=== PATIENT | female | born 1945 | race Caucasian/White ===

== ENCOUNTER 2017-12-09 10:13 | Outpatient (CLI) | payer MEDICARE | END 2017-12-09 10:14 | disposition home or self-care (01) | LOC: BICMAMMO 10:13 | PROVIDERS: ATTEND Nurse Practitioner | DX: Z12.31 Encounter for screening mammogram for malignant neoplasm of breast (principal) | CPT/HCPCS: 77063; 77067 ==

== ENCOUNTER 2018-12-10 12:40 | Outpatient (CLI) | payer MEDICARE ==
--- NOTE | 2018-12-10 13:42 | MMO ---
Bilateral MAMMO Bilat Screen DDI+MICHELLE. CLINICAL HISTORY: Patient is 73 years old and is seen for screening. The patient has no family history of breast cancer. The patient has no personal history of cancer. VIEWS: The views performed were: bilateral craniocaudal with tomosynthesis and bilateral mediolateral oblique with tomosynthesis. FILMS COMPARED: The present examination has been compared to prior imaging studies performed at [facility] on 11/25/2014, 12/06/2015, 12/06/2016 and 12/09/2017. This study has been interpreted with the assistance of computer-aided detection. MAMMOGRAM FINDINGS: There are scattered fibroglandular densities. There is a focal asymmetry seen in the outer region of the left breast. In the right breast, there are no suspicious masses, calcifications or areas of architectural distortion. IMPRESSION: FOCAL ASYMMETRY IN THE LEFT BREAST REQUIRES ADDITIONAL EVALUATION. RECOMMEND DIAGNOSTIC MAMMOGRAM. ULTRASOUND MAY ALSO PROVE USEFUL AT RECALL. THE RESULTS OF THIS EXAM WERE SENT TO THE PATIENT. ACR BI-RADS Category 0 - Incomplete: Need additional imaging evaluation. [facility] will notify the patient of the need for additional imaging services. MAMMOGRAPHY NOTE: 1. A negative mammogram report should not delay a biopsy if a dominant of clinically suspicious mass is present. 2. Approximately 10% to 15% of breast cancers are not detected by mammography. 3. Adenosis and dense breasts may obscure an underlying neoplasm. Reported by: SHERRIE PETTY MD Electonically Signed: [id number]
== END 2018-12-10 12:41 | disposition home or self-care (01) ==
LOC: BICMAMMO 12:40
PROVIDERS: ATTEND Clinical Nurse Specialist Medical-Surgical
DX: Z12.31 Encounter for screening mammogram for malignant neoplasm of breast (principal); N64.89 Other specified disorders of breast
CPT/HCPCS: 77063; 77067

== ENCOUNTER 2018-12-18 12:27 | Outpatient (CLI) | payer MEDICARE ==
--- NOTE | 2018-12-18 14:02 | MMO ---
Left Breast MAMMO Unilat Diag DDI LT+MICHELLE. CLINICAL HISTORY: Patient is 73 years old and is seen for additional evaluation requested from prior study. The patient has no family history of breast cancer. The patient has no personal history of cancer. VIEWS: The views performed were: left craniocaudal spot compression with tomosynthesis; left mediolateral oblique spot compression with tomosynthesis; and left mediolateral with tomosynthesis. FILMS COMPARED: The present examination has been compared to prior imaging studies performed at [facility] on 12/06/2016, 12/09/2017, 12/10/2018 and 12/18/2018. This study has been interpreted with the assistance of computer-aided detection. MAMMOGRAM FINDINGS: There are scattered fibroglandular densities. There is an irregular mass measuring 6 millimeters seen in the middle region of the left breast at 3 o'clock. IMPRESSION: MASS IN THE LEFT BREAST IS SUSPICIOUS. BIOPSY IS RECOMMENDED. THE RESULTS OF THIS EXAM WERE SENT TO THE PATIENT. ACR BI-RADS Category 4 - Suspicious abnormality - biopsy should be considered MAMMOGRAPHY NOTE: 1. A negative mammogram report should not delay a biopsy if a dominant of clinically suspicious mass is present. 2. Approximately 10% to 15% of breast cancers are not detected by mammography. 3. Adenosis and dense breasts may obscure an underlying neoplasm. Reported by: Narciso DURAN Electonically Signed: [id number]
--- NOTE | 2018-12-18 14:11 | ULT ---
LEFT BREAST ULTRASOUND: HISTORY: Breast mass. COMPARISON: Multiple prior exams, most recent mammogram from same day. FINDINGS: Left breast, 3 o'clock, 4 cm from the nipple, has a hypoechoic mass with posterior acoustic shadowing , angular margin, which is taller than wide with a peripheral echogenic halo, measuring up to 7 mm. IMPRESSION: BI-RADS category 4 - suspicious for malignancy. Ultrasound guided biopsy recommended. CODE CR POS: OFF
== END 2018-12-18 12:28 | disposition home or self-care (01) ==
LOC: BICMAMMO 12:27
PROVIDERS: ATTEND Clinical Nurse Specialist Medical-Surgical
DX: N64.89 Other specified disorders of breast (principal)
CPT/HCPCS: 76642; 77065; G0279

== ENCOUNTER → 2018-12-29 | Day surgery (SDC) | payer MEDICARE ==
--- NOTE | 2018-12-29 13:42 | MMO ---
Left Breast MAMMO Unilat Diag DDI LT. CLINICAL HISTORY: Patient is 73 years old and is seen for diagnostic exam. VIEWS: The views performed were: . FILMS COMPARED: The present examination has been compared to prior imaging studies performed at [facility] on 12/09/2017, 12/10/2018 and 12/18/2018. This study has been interpreted with the assistance of computer-aided detection. IMPRESSION: FINDING IN THE LEFT BREAST IS CONFIRMED UTILIZING POST PROCEDURE MAMMOGRAM. THE RESULTS OF THIS EXAM WERE SENT TO THE PATIENT. MAMMOGRAPHY NOTE: 1. A negative mammogram report should not delay a biopsy if a dominant of clinically suspicious mass is present. 2. Approximately 10% to 15% of breast cancers are not detected by mammography. 3. Adenosis and dense breasts may obscure an underlying neoplasm. Reported by: Narciso DURAN Electonically Signed: [id number]
--- NOTE | 2018-12-29 17:17 | ULT ---
ULTRASOUND GUIDED LEFT BREAST BIOPSY: History: Mass. Comparison: Ultrasound, 12-18-18 as well as mammogram, 12-18-18. FINDINGS: The patient was brought to the ultrasound suite where all questions were answered. Informed consent w as obtained. Time was performed. The patient's left breast was prepped and draped in normal sterile fashion. 5 ml of Lidocaine was ins tilled into the superficial and deep soft tissues. After adequate anesthesia, using a 14 gauge needle a total of four cores were obtained. The patient tolerated the procedure well without complication. Clip was placed in good position on post clip mammogram. IMPRESSION: Technically successful ultrasound guided left breast biopsy. POS: OFF
== END ==
LOC: BICULT 12:26
PROVIDERS: ATTEND Clinical Nurse Specialist Medical-Surgical
PROC: 0H9U3ZX Drainage of Left Breast, Percutaneous Approach, Diagnostic (ICD-10-PCS; principal; 2018-12-29)
DX: C50.812 Malignant neoplasm of overlapping sites of left female breast (principal); Z88.0 Allergy status to penicillin; Z88.1 Allergy status to other antibiotic agents
CPT/HCPCS: 19083; 88305; 88341; 88342

== ENCOUNTER 2019-02-23 06:36 | Outpatient (CLI) | payer MEDICARE ==
[2019-02-23 13:01] LABS: #Basophils 0.1 thou/uL (0.0-0.2); #Eosinphils 0.1 thou/uL (0.0-0.7); #Monocytes 0.4 thou/uL (0.11-0.59); #Neutrophils 3.2 thou/uL (1.40-6.50); %Basophils 1.1 % (0.0-1.0); %Eosinophils 1.6 % (0.0-10.0); %Lymphocytes 34.3 % (21.0-51.0); %Monocytes 6.7 % (0.0-10.0); %Neutrophils 56.4 % (42.0-75.0); Hemoglobin 15.3 g/dL (12.0-16.0); Mean Corpuscular HGB CONC 32.3 g/dL (32.0-36.0); Mean Corpuscular Hemoglobin 30.2 pg (27.0-31.0); Mean Corpuscular Volume 93.6 fL (78.0-98.0); Mean Platelet Volume 9.6 fL (7.4-10.4); Platelet Count 203 thou/uL (130-400); RBC Distribution Width 11.9 % (11.5-14.5); Red Blood Cell (RBC) Count 5.05 mill/uL (4.20-5.40); White Blood Cell (WBC) Count 5.7 thou/uL (4.8-10.8)
[2019-02-23 13:33] LABS: ALT (SGPT) 24 U/L (8-55); AST (SGOT) 22 U/L (5-34); Albumin 4.3 g/dL (3.4-4.8); Alkaline Phosphatase 65 U/L (40-110); Anion Gap 13 mmol/L (10-20); BUN (Urea Nitrogen) 15 mg/dL (9.8-20.1); Bilirubin, Total 0.4 mg/dL (0.2-1.2); Calc. Creatinine Clearance 0 mL/min (70-130); Carbon Dioxide 26 mmol/L (23-31); Chloride 102 mmol/L (98-107); Estimated GFR-MDRD 79; Globulin 2.6 g/dL (2.4-3.5); Glucose 106 mg/dL (83-110); Potassium 3.9 mmol/L (3.5-5.1); Protein, Total 6.9 g/dL (6.0-8.3); Sodium 137 mmol/L (136-145)
--- NOTE | 2019-02-25 13:38 | EKG ---
Test Reason : Blood Pressure : / mmHG Vent. Rate : 061 BPM Atrial Rate : 061 BPM P-R Int : 200 ms QRS Dur : 072 ms QT Int : 350 ms P-R-T Axes : 055 072 062 degrees QTc Int : 352 ms Normal sinus rhythm Septal infarct , age undetermined Abnormal ECG No previous ECGs available Confirmed by JORGE ALBERTO DAWSON (2) on 02/25/2019 1:37:29 PM Referred By: ISMA Confirmed By:JORGE ALBERTO DAWSON
== END 2019-02-23 06:37 | disposition home or self-care (01) ==
LOC: LABBT 06:36
PROVIDERS: ATTEND Surgery
DX: Z01.818 Encounter for other preprocedural examination (principal); C50.912 Malignant neoplasm of unspecified site of left female breast
CPT/HCPCS: 80053; 85025; 93005; 93010

== ENCOUNTER 2019-03-06 06:16 | Day surgery (SDC) | payer MEDICARE ==
[2019-02-23 11:10] VITALS: BMI 29.2
--- NOTE | 2019-03-06 09:13 | HP ---
CHIEF COMPLAINT: Breast cancer. HISTORY OF PRESENT ILLNESS: The patient is a 73-year-old female, who on mammogram in November was found to have a mass in a left breast. Core biopsy was positive for infiltrating ductal carcinoma. There are no palpable masses. PAST MEDICAL HISTORY: Low back pain, anxiety, seasonal allergies, hyperlipidemia, epilepsy, seizures, headaches, and hypertension. PAST SURGICAL HISTORY: Hysterectomy at age 30. MEDICATIONS: 1. Ibuprofen. 2. Lisinopril. 3. Fish oil. 4. Aspirin. 5. Lipitor. 6. Aleve. 7. Diphenhydramine. FAMILY HISTORY: Both parents were . SOCIAL HISTORY: She is . No tobacco. No alcohol. PHYSICAL EXAMINATION: VITAL SIGNS: Height 62, weight 158, and body mass index 28.9. GENERAL: Well-developed, well-nourished female, in no apparent distress. HEENT: Unremarkable. LUNGS: Clear. HEART: Regular rate and rhythm. BREASTS: There is some bruising in the upper outer left breast. No palpable mass or adenopathy. ABDOMEN: Soft, nontender. Good bowel sounds. No masses or hernias. EXTREMITIES: Good pulses. No pedal edema. ASSESSMENT: Left breast cancer. PLAN: Left needle localization lumpectomy with sentinel lymph node biopsy. CONSENT: I have discussed planned procedure as well as risk of bleeding, infection, injury to nerves, lymph edema. She understands and gives informed consent. Job ID: [id number]
[2019-03-06] MEDS ORDERED: PROPOFOL 200 MG/20 ML VIAL ONE (09:54)
[2019-03-06] MEDS ORDERED: Ketorolac Tromethamine 30 MG/ML VIAL ONE (09:54)
[2019-03-06] MEDS ORDERED: Ondansetron PF 4 MG/2 ML Vial ONE (09:54)
[2019-03-06] MEDS ORDERED: Dexamethasone 20 MG/5 ML VIAL ONE (09:54)
[2019-03-06] MEDS ORDERED: Lidocaine 1% PF 5 ML VIAL ONE (09:54)
[2019-03-06] MEDS ORDERED: Lidocaine 1% w/Epinephrine 1:100K 20 ML VIAL ONE (10:40)
[2019-03-06] MEDS ORDERED: Bupivacaine 0.25% HCL 30 ML VIAL ONE (10:40)
[2019-03-06] MEDS ORDERED: Fentanyl 100 MCG/2 ML VIAL ONE ×3 (10:47→15:31)
--- NOTE | 2019-03-06 11:51 | MMO ---
Needle localization left breast cancer mammographic guided HISTORY: After explaining the procedure and answering all questions, the spiculated mass and localiza tion clip within the lateral aspect of the breast was visualized. Sterile technique, buffered local anesthesia, mammographic guidance, and a lateral approach were used to carefully advance a 7.5 cm Ramirez er needle through the posterior margin of the mass, immediately deep to the localization clip. Final images show the needle tip to be 1.7 cm medial to the mass. Images were marked. Patient tolerat ed the procedure well and was transferred to nuclear medicine Department in good condition. IMPRESSION: Technically successful needle localization left breast cancer.
[2019-03-06] MEDS ORDERED: Levofloxacin 500 mg/D5W 100 ml Premix Bag ONE (12:41)
[2019-03-06] MEDS ORDERED: Isosulfan Blue 50 MG/5 ML VIAL ONE (13:11)
--- NOTE | 2019-03-06 13:25 | NM ---
Radionucleotide Lymphoscintigraphy left breast HISTORY: Left breast cancer. FINDINGS: After explaining the procedure and answering all questions, the anterior aspect of the left breast was cleansed. Clean technique was used to carefully inject a total volume of 1 cc containing 378 uCi technetium 99m filtered sulfur colloid in 4 equal aliquots into the dermis at the 12:00, 3:00, 6:00, and 9:00 periareolar positions of the left breast. Injection sites were massaged by the patient to diffuse the liquid. Immediate imaging performed. Imag es at immediate and 1 hour times show a small focus just lateral to the skin margin of the left axilla. This is consistent with and extrinsic artifact that was removed for the additional images. Imaging carried out to 3 hours shows no significant uptake over the axilla or mediastinum. Patient was sent to day surgery in good condition. IMPRESSION: Lymphoscintigraphy of the left breast failed to confidently demonstrate a sentinel lymph node.
[2019-03-06] MEDS ORDERED: Promethazine HCl 25 MG/ML VIAL SLOW IVP PRN (14:31)
[2019-03-06] MEDS ORDERED: Meperidine HCl/PF 25 MG/ML VIAL SLOW IVP PRN (14:31)
[2019-03-06] MEDS ORDERED: HYDROmorphone 2 MG/ML VIAL SLOW IVP PRN (14:31)
[2019-03-06] MEDS ORDERED: Promethazine HCl 25 MG/ML VIAL ONE (15:42)
[2019-03-06] MEDS ORDERED: HYDROcodone/Acetaminophen 5/325 mg Tablet ONE (16:46)
--- NOTE | 2019-03-09 10:59 | OP ---
DATE OF PROCEDURE: 03/06/2019 PREOPERATIVE DIAGNOSIS: Left breast cancer. PROCEDURES PERFORMED: Left lymphoscintigraphy, sentinel lymph node biopsy x2, needle localization, partial mastectomy. INDICATIONS: A 73-year-old female, who on recent mammogram, found to have an abnormal area in the outer left breast. Core needle biopsy was positive for infiltrating ductal carcinoma. FINDINGS: Two sentinel lymph nodes found, successful removal of the clip and nodule by specimen mammogram. DESCRIPTION OF PROCEDURE: After informed consent was obtained, the patient was taken to the operating room, given general endotracheal anesthesia. She was placed in the supine position. She had undergone injection of radionucleotide as well as needle localization in the Radiology Department. Her Lymphazurin 3 mL was infiltrated subareolar and peritumoral. Then, the breast and axilla were prepped and draped in usual fashion. The Neoprobe was used with a baseline count around 3. Transcutaneous counts of 12 were found in the axilla. A transverse axillary incision was performed. Subcu divided sharply. The deltopectoral fascia was incised. In-vivo counts of 18 were found and ex vivo counts of 22 on this lymph node. It was dissected out and efferent and afferent lymphatics ligated with 3-0 Vicryl ties, sent as sentinel node. A second one with counts of around 13 was found. This was dissected out. Ex vivo counts of 15 were found, sent as sentinel node 2. Residual counts were all less than 4. Then, a curvilinear incision was performed in the upper outer left breast. Subcu divided sharply. The tip of the needle was palpable. A generous piece of breast tissue around the needle was excised sharply with Metzenbaum scissors. The cancer was not palpable. The needle and specimen were removed. The specimen was marked with a needle lateral, blue anterior, white superior and sent to mammography, showing that it did contain the clip and lesion, sent to Pathology for further analysis. Hemostasis was achieved electrocautery. The wound was thoroughly irrigated. A 10-Liberian drain was placed and brought out through a separate stab wound. The subcu was closed with interrupted 3-0 Vicryl. The skin was closed with a running subcuticular 4-0 Rapide. Steri-Strips applied. Sterile bandage applied. The patient tolerated the procedure well, transferred to Recovery in good condition. Sponge and needle count verified correct x2. Job ID: [id number]
--- NOTE | 2019-03-09 12:02 | MMO ---
Surgical specimen mammography HISTORY: Left breast cancer. FINDINGS: Mammographic evaluation of the surgical specimen obtained by Dr. Liz shows the localizati on wire, localization clip, and small hyperdense nodule to overlie the soft tissue specimen.
== END 2019-03-06 17:00 | disposition home or self-care (01) ==
LOC: SDC 06:16
PROVIDERS: ATTEND Surgery
PROC: 0HBU0ZZ Excision of Left Breast, Open Approach (ICD-10-PCS; principal; 2019-03-06)
PROC: 07B60ZX Excision of Left Axillary Lymphatic, Open Approach, Diagnostic (ICD-10-PCS; 2019-03-06)
DX: C50.812 Malignant neoplasm of overlapping sites of left female breast (principal); F41.9 Anxiety disorder, unspecified; J30.2 Other seasonal allergic rhinitis; E78.5 Hyperlipidemia, unspecified; I10 Essential (primary) hypertension; Z79.82 Long term (current) use of aspirin; Z79.899 Other long term (current) drug therapy; Z88.0 Allergy status to penicillin; Z88.1 Allergy status to other antibiotic agents; Z17.0 Estrogen receptor positive status [ER+]
CPT/HCPCS: 19281; 19301; 38525; 38900; 76098; 78195; A9541; Q9968; 88307; 88342; J1100; J1885; J1956; J2001; J2405; J2550; J2704; J3010; S0020

== ENCOUNTER 2019-12-14 12:52 | Outpatient (CLI) | payer MEDICARE ==
--- NOTE | 2019-12-14 14:11 | MMO ---
Bilateral MAMMO Bilat Diag DDI+MICHELLE. CLINICAL HISTORY: Patient is 74 years old and is seen for diagnostic exam. The patient has no family history of breast cancer. The patient has a history of Ultrasound guided core biopsy procedure revealed invasive ductal left breast carcinoma in December,. The patient has a history of left Lumpectomy in February, - malignant. VIEWS: The views performed were: bilateral craniocaudal with tomosynthesis; bilateral mediolateral oblique with tomosynthesis; and bilateral mediolateral with tomosynthesis. FILMS COMPARED: The present examination has been compared to prior imaging studies performed at [facility] on 12/10/2018, 12/18/2018 and 12/29/2018. This study has been interpreted with the assistance of computer-aided detection. MAMMOGRAM FINDINGS: There are scattered fibroglandular densities. Finding 1: There are new post operative changes seen in the outer region of the left breast. Finding 2: There is a stable intramammary lymph node seen in the right breast. There are no suspicious masses, suspicious calcifications, or suspicious areas of architectural distortion. IMPRESSION: THERE IS NO MAMMOGRAPHIC EVIDENCE OF MALIGNANCY. A ROUTINE FOLLOW-UP MAMMOGRAM IN 1 YEAR IS RECOMMENDED. THE RESULTS OF THIS EXAM WERE SENT TO THE PATIENT. ACR BI-RADS Category 2 - Benign finding MAMMOGRAPHY NOTE: 1. A negative mammogram report should not delay a biopsy if a dominant of clinically suspicious mass is present. 2. Approximately 10% to 15% of breast cancers are not detected by mammography. 3. Adenosis and dense breasts may obscure an underlying neoplasm. Reported by: SHERRIE PETTY MD Electonically Signed: [id number]
== END 2019-12-14 12:53 | disposition home or self-care (01) ==
LOC: BICMAMMO 12:52
PROVIDERS: ATTEND Surgery
DX: C50.919 Malignant neoplasm of unspecified site of unspecified female breast (principal)
CPT/HCPCS: 77066; G0279

== ENCOUNTER 2020-12-22 13:14 | Outpatient (CLI) | payer MEDICARE | END 2020-12-22 13:15 | disposition home or self-care (01) | LOC: BICMAMMO 13:14 | PROVIDERS: ATTEND Clinical Nurse Specialist Medical-Surgical | DX: Z08 Encounter for follow-up examination after completed treatment for malignant neoplasm (principal); Z85.3 Personal history of malignant neoplasm of breast | CPT/HCPCS: 77066; G0279 ==

== ENCOUNTER 2021-03-15 15:34 | Emergency (ER) | payer OTHER, MEDICARE | END 2021-03-15 16:50 | disposition home or self-care (01) | LOC: ERS 15:34 | DX: S62.356A Nondisplaced fracture of shaft of fifth metacarpal bone, right hand, initial encounter for closed fracture (principal); E78.5 Hyperlipidemia, unspecified; E78.00 Pure hypercholesterolemia, unspecified; I10 Essential (primary) hypertension; M19.90 Unspecified osteoarthritis, unspecified site; G40.909 Epilepsy, unspecified, not intractable, without status epilepticus; V57.6XXA Passenger in pick-up truck or van injured in collision with fixed or stationary object in traffic accident, initial encounter | CPT/HCPCS: 29125 ==

== ENCOUNTER 2021-06-29 13:34 | Outpatient (CLI) | payer MEDICARE | END 2021-06-29 13:35 | disposition home or self-care (01) | LOC: BICMAMMO 13:34 | PROVIDERS: ATTEND Internal Medicine Hematology & Oncology | DX: Z13.820 Encounter for screening for osteoporosis (principal); C50.212 Malignant neoplasm of upper-inner quadrant of left female breast; T38.6X5A Adverse effect of antigonadotrophins, antiestrogens, antiandrogens, not elsewhere classified, initial encounter; M85.852 Other specified disorders of bone density and structure, left thigh | CPT/HCPCS: 77080 ==

== ENCOUNTER 2021-07-27 10:48 | Outpatient (CLI) | payer MEDICARE ==
[2021-07-27 12:44] LABS: Estimated GFR-MDRD - POC Greater than 90
== END 2021-07-27 10:49 | disposition home or self-care (01) ==
LOC: BICCT 10:48
PROVIDERS: ATTEND Registered Nurse Community Health
DX: R10.9 Unspecified abdominal pain (principal); N20.0 Calculus of kidney; K57.30 Diverticulosis of large intestine without perforation or abscess without bleeding; I70.90 Unspecified atherosclerosis; Z90.710 Acquired absence of both cervix and uterus
CPT/HCPCS: 74178; 82565

== ENCOUNTER 2021-10-26 11:51 | Outpatient (CLI) | payer OTHER | END 2021-10-26 11:52 | disposition home or self-care (01) | LOC: BICRAD 11:51 | PROVIDERS: ATTEND Registered Nurse Community Health | DX: M54.42 Lumbago with sciatica, left side (principal); M47.816 Spondylosis without myelopathy or radiculopathy, lumbar region; M43.16 Spondylolisthesis, lumbar region; M16.11 Unilateral primary osteoarthritis, right hip | CPT/HCPCS: 72100 ==

== ENCOUNTER 2022-01-17 12:32 | Outpatient (CLI) | payer OTHER | END 2022-01-17 12:33 | disposition home or self-care (01) | LOC: BICMAMMO 12:32 | PROVIDERS: ATTEND Registered Nurse Community Health | DX: Z12.31 Encounter for screening mammogram for malignant neoplasm of breast (principal); R92.8 Other abnormal and inconclusive findings on diagnostic imaging of breast; Z85.3 Personal history of malignant neoplasm of breast; Z98.890 Other specified postprocedural states | CPT/HCPCS: 77066; G0279 ==

== ENCOUNTER 2022-10-31 13:30 | Outpatient (CLI) | payer MEDICARE | END 2022-10-31 13:31 | disposition home or self-care (01) | LOC: RAD 13:30 | PROVIDERS: ATTEND Registered Nurse Hospice | DX: M54.2 Cervicalgia (principal); M47.812 Spondylosis without myelopathy or radiculopathy, cervical region | CPT/HCPCS: 72040 ==

== ENCOUNTER 2022-11-16 11:13 | Emergency (ER) | payer MEDICARE, OTHER ==
[~2022-11-16 11:13] MED LIST: Iopamidol-370 76% 500 ML MDV (1 ML CHARGE) ONE
[2022-11-16 11:33] LABS: #Monocytes 0.7 thou/uL (0.11-0.59); #Neutrophils 6.8 thou/uL (1.40-6.50); %Basophils 0.3 % (0.0-1.0); %Eosinophils 0.3 % (0.0-10.0); %Lymphocytes 12.9 % (21.0-51.0); %Monocytes 7.5 % (0.0-10.0); %Neutrophils 78.7 % (42.0-75.0); Hematocrit 41.3 % (36.0-47.0); Hemoglobin 13.7 g/dL (12.0-16.0); Mean Corpuscular HGB CONC 33.2 g/dL (32.0-36.0); Mean Corpuscular Volume 90.6 fl (78.0-98.0); Mean Platelet Volume 10.3 fL (7.4-10.4); Platelet Count 204 10x3/uL (130-400); RBC Distribution Width 13.1 % (11.5-14.5); Red Blood Cell (RBC) Count 4.56 mill/uL (4.20-5.40); White Blood Cell (WBC) Count 8.6 10x3/uL (4.8-10.8)
[2022-11-16 11:56] LABS: ALT (SGPT) 14 U/L (8-55); AST (SGOT) 22 U/L (5-34); Albumin 4.3 g/dL (3.4-4.8); Alkaline Phosphatase 62 U/L (40-110); Anion Gap 14 mmol/L (10-20); BUN (Urea Nitrogen) 15 mg/dL (9.8-20.1); Bilirubin, Total 0.6 mg/dL (0.2-1.2); Calc. Creatinine Clearance 0 mL/min (70-130); Calcium 9.8 mg/dL (7.8-10.44); Carbon Dioxide 27 mmol/L (23-31); Chloride 101 mmol/L (98-107); Estimated GFR 60; Globulin 2.7 g/dL (2.4-3.5); Glucose 155 mg/dL (83-110); Potassium 3.8 mmol/L (3.5-5.1); Sodium 138 mmol/L (136-145)
[2022-11-16 12:30] LABS: Bacteria/HPF None Seen HPF (None Seen); Bilirubin Negative (Negative); Blood, Urine 3+ (Negative); CAUTI Indications for Culture Acute Hematuria; Clarity Turbid (Clear); Glucose, Urine (Dipstick) Normal (Negative); Ketone, Urine 10 mg/dL (Negative); Leukocyte 25 Leu/uL (Negative); Nitrite Negative (Negative); Protein, Urine (Dipstick) 20 mg/dL (Neg-Trace); RBC/HPF Greater than 50 HPF (0-3); Specific Gravity, Urine 1.013 (1.002-1.036); Squamous Epithelial 0-3 HPF (0-3); Urobilinogen Normal mg/dL (Less than 2); pH, Urine 6.5 (5.0-9.0)
[2022-11-16 12:36] LABS: Troponin I Less than 0.010 ng/mL (< 0.028)
[2022-11-16 12:37] LABS: Urine Culture Reflex Yes Yes
[2022-11-16] MEDS ORDERED: Ketorolac Tromethamine 30 MG/ML VIAL ONE (13:32)
== END 2022-11-16 14:40 | disposition home or self-care (01) ==
LOC: ERS 11:13
DX: N13.2 Hydronephrosis with renal and ureteral calculous obstruction (principal); R53.1 Weakness; R31.9 Hematuria, unspecified; I10 Essential (primary) hypertension; E78.00 Pure hypercholesterolemia, unspecified; E78.5 Hyperlipidemia, unspecified; Z79.899 Other long term (current) drug therapy
CPT/HCPCS: 36415; 74177; 80053; 81001; 84443; 84484; 85025; 87086; 93005; 96374; J1885; Q9967

== ENCOUNTER 2022-12-11 15:11 | Outpatient (CLI) | payer OTHER ==
[2022-12-11 16:33] LABS: Hematocrit 41.9 % (34.9-44.5); Hemoglobin 13.8 g/dL (12.0-15.5); Mean Corpuscular HGB CONC 32.9 g/dL (32.0-36.0); Mean Corpuscular Volume 91.1 fl (81.6-98.3); Mean Platelet Volume 10.6 fl (7.4-10.4); Platelet Count 247 10x3/uL (150-450); RBC Distribution Width 12.6 % (11.5-14.5); White Blood Cell (WBC) Count 6.8 10x3/uL (3.5-10.5)
[2022-12-11 16:53] LABS: PTT 26.7 sec (22.0-33.0); Prothrombin Time 10.4 sec (9.5-12.1)
[2022-12-11 16:55] LABS: Anion Gap 15 mmol/L (10-20); BUN (Urea Nitrogen) 21 mg/dL (9.8-20.1); Calc. Creatinine Clearance 0 mL/min (70-130); Calcium 9.6 mg/dL (7.8-10.44); Carbon Dioxide 26 mmol/L (23-31); Chloride 102 mmol/L (98-107); Estimated GFR 78; Glucose 101 mg/dL (83-110); Potassium 3.5 mmol/L (3.5-5.1); Sodium 139 mmol/L (136-145)
== END 2022-12-11 15:12 | disposition home or self-care (01) ==
LOC: LABBT 15:11
PROVIDERS: ATTEND Urology
DX: Z01.818 Encounter for other preprocedural examination (principal); C50.919 Malignant neoplasm of unspecified site of unspecified female breast; N20.2 Calculus of kidney with calculus of ureter; M54.32 Sciatica, left side; M54.50 Low back pain, unspecified
CPT/HCPCS: 80048; 85027; 85610; 85730; 93005; 93010

== ENCOUNTER 2022-12-12 07:36 | Day surgery (SDC) | payer OTHER ==
[2022-12-11 16:07] VITALS: BMI 23.8
[2022-12-12] MEDS ORDERED: LevoFLOXacin 500 mg/D5W 100 ML BAG ONE (08:08)
[2022-12-12] MEDS ORDERED: Iopamidol 30 ML ONE (09:27)
[2022-12-12] MEDS ORDERED: fentaNYL 50 mcg/mL 1 mL Vial ONE ×2 (09:38→11:59)
[2022-12-12] MEDS ORDERED: Phenazopyridine HCl 100 MG TAB ONE (11:47)
[2022-12-12] MEDS ORDERED: Oxybutynin 5 MG TAB ONE (11:48)
[2022-12-12] MEDS ORDERED: HYDROcodone/Acetaminophen 5/325 mg Tablet ONE (13:52)
== END 2022-12-12 13:58 | disposition home or self-care (01) ==
LOC: SDC 07:36
PROVIDERS: ATTEND Urology
PROC: 0TF68ZZ Fragmentation in Right Ureter, Via Natural or Artificial Opening Endoscopic (ICD-10-PCS; principal; 2022-12-12)
PROC: 0T768DZ Dilation of Right Ureter with Intraluminal Device, Via Natural or Artificial Opening Endoscopic (ICD-10-PCS; 2022-12-12)
PROC: 0TBB8ZZ Excision of Bladder, Via Natural or Artificial Opening Endoscopic (ICD-10-PCS; 2022-12-12)
DX: C67.4 Malignant neoplasm of posterior wall of bladder (principal); N13.2 Hydronephrosis with renal and ureteral calculous obstruction; I10 Essential (primary) hypertension; E78.5 Hyperlipidemia, unspecified; M54.42 Lumbago with sciatica, left side; Z79.899 Other long term (current) drug therapy; Z88.0 Allergy status to penicillin
CPT/HCPCS: 52235; 52356; 74018; 74420; 82365; J3010; 88300; 88305; C1747; C1769; C2617; J1956; Q9967

== ENCOUNTER 2023-01-03 03:28 | Inpatient (IN) | payer OTHER ==
[2023-01-03 03:55] LABS: #Eosinphils 0.1 thou/uL (0.0-0.7); #Monocytes 0.6 thou/uL (0.11-0.59); #Neutrophils 4.5 thou/uL (1.40-6.50); %Basophils 0.5 % (0.0-1.0); %Eosinophils 0.7 % (0.0-10.0); %Lymphocytes 29.8 % (21.0-51.0); %Monocytes 8.5 % (0.0-10.0); %Neutrophils 60.2 % (42.0-75.0); Hematocrit 38.2 % (36.0-47.0); Hemoglobin 12.4 g/dL (12.0-16.0); Mean Corpuscular HGB CONC 32.5 g/dL (32.0-36.0); Mean Corpuscular Hemoglobin 29.9 pg (27.0-31.0); Mean Platelet Volume 10.5 fL (7.4-10.4); Platelet Count 253 10x3/uL (130-400); RBC Distribution Width 12.2 % (11.5-14.5); Red Blood Cell (RBC) Count 4.15 mill/uL (4.20-5.40); White Blood Cell (WBC) Count 7.4 10x3/uL (4.8-10.8)
[2023-01-03 04:19] LABS: ALT (SGPT) 11 U/L (8-55); AST (SGOT) 18 U/L (5-34); Albumin 4.2 g/dL (3.4-4.8); Alkaline Phosphatase 52 U/L (40-110); Anion Gap 12 mmol/L (10-20); BUN (Urea Nitrogen) 15 mg/dL (9.8-20.1); Bilirubin, Total 0.5 mg/dL (0.2-1.2); Calc. Creatinine Clearance 0 mL/min (70-130); Calcium 9.6 mg/dL (7.8-10.44); Carbon Dioxide 30 mmol/L (23-31); Chloride 98 mmol/L (98-107); Estimated GFR 81; Globulin 2.4 g/dL (2.4-3.5); Glucose 141 mg/dL (83-110); Protein, Total 6.6 g/dL (5.8-8.1); Sodium 136 mmol/L (136-145)
[2023-01-03 04:25] LABS: PTT 26.9 sec (22.9-36.1); Prothrombin Time 13.2 sec (12.0-14.7)
[2023-01-03] MEDS ORDERED: Ondansetron PF 4 MG/2 ML Vial IVP PRN (04:47)
[2023-01-03 06:11] VITALS: BMI 20.6
[2023-01-03 06:34] LABS: Hemoglobin A1c 5.7 % (4.0-6.0)
[2023-01-03] MEDS: Acetaminophen 325 MG TAB PO PRN ×2 (11:03→22:04)
[2023-01-03 11:09] LABS: Hematocrit 35.1 % (36.0-47.0); Hemoglobin 11.6 g/dL (12.0-16.0)
[2023-01-03] MEDS ORDERED: Morphine 4 MG/ML VIAL SLOW IVP PRN (11:12)
[2023-01-03] MEDS ORDERED: Fentanyl 100 MCG/2 ML VIAL SLOW IVP SCH (11:15)
[2023-01-03] MEDS ORDERED: fentaNYL PF 100 MCG/2 ML SYRINGE ONE (12:24)
[2023-01-03] MEDS ORDERED: PROPOFOL 20 ML ONE (12:24)
[2023-01-03] MEDS ORDERED: Ondansetron PF 4 MG/2 ML Vial ONE ×2 (12:34→12:46)
[2023-01-03] MEDS ORDERED: PROPOFOL 200 MG/20 ML VIAL ONE (12:34)
[2023-01-03] MEDS ORDERED: Lidocaine 1% PF 5 ML VIAL ONE ×2 (12:34)
[2023-01-03] MEDS ORDERED: Dexamethasone 20 MG/5 ML VIAL ONE (12:34)
[2023-01-03] MEDS ORDERED: Dexamethasone 4 mg/ml Vial ONE (12:46)
[2023-01-03] MEDS ORDERED: MINERAL OIL/WHITE PETROLATUM 3.5 GM TUBE ONE (13:17)
[2023-01-03] MEDS ORDERED: fentaNYL 50 mcg/mL 1 mL Vial ONE (13:43)
[2023-01-03 18:37] LABS: Hematocrit 36.1 % (36.0-47.0)
[2023-01-03] MEDS ORDERED: traZODone HCl 50 MG TAB PO SCH (21:30)
[2023-01-03] MEDS ORDERED: Melatonin 3 MG TAB PO PRN (21:30)
[2023-01-03] MEDS ORDERED: cefTRIAXone\\ROCEPHIN 1 GM in Sodium Chloride 0.9% 100 ML IVPB SCH (22:00)
[2023-01-04 05:28] LABS: #Monocytes 0.5 thou/uL (0.11-0.59); #Neutrophils 4.3 thou/uL (1.40-6.50); %Basophils 0.5 % (0.0-1.0); %Eosinophils 0.2 % (0.0-10.0); %Lymphocytes 24.5 % (21.0-51.0); %Monocytes 8.1 % (0.0-10.0); %Neutrophils 66.4 % (42.0-75.0); Hemoglobin 11.5 g/dL (12.0-16.0); Mean Corpuscular HGB CONC 32.9 g/dL (32.0-36.0); Mean Corpuscular Hemoglobin 30.1 pg (27.0-31.0); Mean Corpuscular Volume 91.6 fl (78.0-98.0); Mean Platelet Volume 10.6 fL (7.4-10.4); Platelet Count 233 10x3/uL (130-400); RBC Distribution Width 12.3 % (11.5-14.5); Red Blood Cell (RBC) Count 3.82 mill/uL (4.20-5.40); White Blood Cell (WBC) Count 6.5 10x3/uL (4.8-10.8)
[2023-01-04 05:49] LABS: Anion Gap 13 mmol/L (10-20); BUN (Urea Nitrogen) 14 mg/dL (9.8-20.1); Calc. Creatinine Clearance 52 mL/min (70-130); Calcium 9.5 mg/dL (7.8-10.44); Carbon Dioxide 29 mmol/L (23-31); Chloride 100 mmol/L (98-107); Estimated GFR 75; Glucose 119 mg/dL (83-110); Potassium 4.3 mmol/L (3.5-5.1); Sodium 138 mmol/L (136-145)
[2023-01-04 13:30] VITALS: BP 146/72; TEMP 98.6
== END 2023-01-04 13:32 | disposition home or self-care (01) | DRG 669 ==
LOC: ERS 03:28 → T4-B 06:00
PROVIDERS: ADMIT Internal Medicine; ATTEND Internal Medicine
PROC: 0T5B8ZZ Destruction of Bladder, Via Natural or Artificial Opening Endoscopic (ICD-10-PCS; principal; 2023-01-03)
PROC: 0TCB8ZZ Extirpation of Matter from Bladder, Via Natural or Artificial Opening Endoscopic (ICD-10-PCS; 2023-01-03)
DX: R31.0 Gross hematuria (principal); D62 Acute posthemorrhagic anemia; C67.9 Malignant neoplasm of bladder, unspecified; I10 Essential (primary) hypertension; E78.5 Hyperlipidemia, unspecified; G40.909 Epilepsy, unspecified, not intractable, without status epilepticus; F41.9 Anxiety disorder, unspecified; F32.A Depression, unspecified; N32.89 Other specified disorders of bladder; R73.03 Prediabetes; Z98.890 Other specified postprocedural states; Z88.0 Allergy status to penicillin; Z90.710 Acquired absence of both cervix and uterus; Z88.1 Allergy status to other antibiotic agents; Z79.899 Other long term (current) drug therapy; Z79.82 Long term (current) use of aspirin; Z85.3 Personal history of malignant neoplasm of breast
CPT/HCPCS: 36415; 80048; 80053; 83036; 85025; 85610; 85730; 86850; 86900; 86901; 93005; 94760; J0696; J1100; J2405; J2704; J3010; J3490

== ENCOUNTER 2023-02-27 10:31 | Inpatient (IN) | payer OTHER ==
[2023-02-27 11:25] LABS: #Monocytes 0.8 thou/uL (0.11-0.59); #Neutrophils 9.2 thou/uL (1.40-6.50); %Basophils 0.2 % (0.0-1.0); %Lymphocytes 10.5 % (21.0-51.0); %Monocytes 6.9 % (0.0-10.0); Hematocrit 49.1 % (36.0-47.0); Hemoglobin 16.1 g/dL (12.0-16.0); Mean Corpuscular HGB CONC 32.8 g/dL (32.0-36.0); Mean Corpuscular Hemoglobin 29.4 pg (27.0-31.0); Mean Corpuscular Volume 89.6 fl (78.0-98.0); Platelet Count 288 10x3/uL (130-400); RBC Distribution Width 12.9 % (11.5-14.5); Red Blood Cell (RBC) Count 5.48 mill/uL (4.20-5.40); White Blood Cell (WBC) Count 11.2 10x3/uL (4.8-10.8)
[2023-02-27] MEDS ORDERED: Morphine 2 MG/ML VIAL ONE (11:41)
[2023-02-27] MEDS ORDERED: Ondansetron PF 4 MG/2 ML Vial ONE (11:41)
[2023-02-27 11:53] LABS: ALT (SGPT) 27 U/L (8-55); AST (SGOT) 33 U/L (5-34); Albumin 4.8 g/dL (3.4-4.8); Alkaline Phosphatase 68 U/L (40-110); Anion Gap 23 mmol/L (10-20); BUN (Urea Nitrogen) 43 mg/dL (9.8-20.1); Bilirubin, Total 0.6 mg/dL (0.2-1.2); Calc. Creatinine Clearance 0 mL/min (70-130); Calcium 10.2 mg/dL (7.8-10.44); Carbon Dioxide 19 mmol/L (23-31); Chloride 97 mmol/L (98-107); Estimated GFR 16; Globulin 3.2 g/dL (2.4-3.5); Glucose 164 mg/dL (83-110); Lipase 15 U/L (8-78); Magnesium 2.2 mg/dL (1.6-2.6); Potassium 3.9 mmol/L (3.5-5.1); Sodium 135 mmol/L (136-145)
[2023-02-27 11:58] LABS: Troponin I 0.029 ng/mL (< 0.028)
[2023-02-27 11:58] LABS: Base Excess -2.5 mEq/L (-2.0 to +3.0); Chloride (VBG) 96 mmol/L (98-106); Hematocrit-VBG 48 % (36.0-47.0); Hemoglobin (Hb) 16.3 g/dL (11.7-16.1); Potassium (VBG) 4.22 mmol/L (3.70-5.30); Sodium 137 mmol/L (133-146); pH (venous) 7.386 (7.32-7.43)
[2023-02-27 12:49] LABS: SARS-CoV-2 NAA Rapid Test Not Detected (NotDetected)
[2023-02-27 15:10] LABS: Bacteria/HPF None Seen HPF (None Seen); Bilirubin Negative (Negative); Blood, Urine 1+ (Negative); CAUTI Indications for Culture Pelvic or flank pain; Clarity Turbid (Clear); Glucose, Urine (Dipstick) Normal (Negative); Ketone, Urine Negative (Negative); Leukocyte 25 Leu/uL (Negative); Nitrite Negative (Negative); Protein, Urine (Dipstick) 30 mg/dL (Neg-Trace); Specific Gravity, Urine 1.023 (1.002-1.036); Squamous Epithelial 0-3 HPF (0-3); Urobilinogen Normal mg/dL (Less than 2)
[2023-02-27 15:13] LABS: Urine Culture Reflex No No
[2023-02-27] MEDS ORDERED: LevoFLOXacin D5W 500 mg (100 mL) BAG ONE (15:31)
[2023-02-27] MEDS ORDERED: Ondansetron ODT 4 MG TAB PO PRN (15:35)
[2023-02-27] MEDS ORDERED: Senokot S 8.6-50 MG TAB PO PRN (15:35)
[2023-02-27] MEDS ORDERED: Acetaminophen 325 MG TAB PO PRN (15:35)
[2023-02-27] MEDS ORDERED: Calcium Carbonate 500 MG ChewTAB PO PRN (15:35)
[2023-02-27] MEDS ORDERED: cefTRIAXone\\ROCEPHIN 2 GM in Sodium Chloride 0.9% 100 ML IVPB SCH (16:00)
[2023-02-27 16:52] LABS: Troponin I 0.013 ng/mL (< 0.028)
[2023-02-27] MEDS ORDERED: cefTRIAXone (ROCEPHIN) 2 GM VIAL ONE (17:15)
[2023-02-27] MEDS ORDERED: Sodium Chloride 0.9% 100 ML ONE (17:15)
[2023-02-27] MEDS: Sodium Chloride 0.9% 1,000 ML IV SCH (17:34)
[2023-02-27 19:52] LABS: Troponin I 0.013 ng/mL (< 0.028)
[2023-02-27 22:40] VITALS: BMI 23.0
[2023-02-27] MEDS: traZODone HCl 50 MG TAB PO SCH (22:45)
[2023-02-27] MEDS: busPIRone HCl 10 MG TAB PO SCH (22:45)
[2023-02-28] MEDS: Sodium Chloride 0.9% 1,000 ML IV SCH (02:00)
[2023-02-28 07:17] LABS: %Basophils 0.2 % (0.0-1.0); %Lymphocytes 7.5 % (21.0-51.0); %Monocytes 11.9 % (0.0-10.0); %Neutrophils 79.9 % (42.0-75.0); Mean Corpuscular HGB CONC 32.5 g/dL (32.0-36.0); Mean Corpuscular Hemoglobin 29.4 pg (27.0-31.0); Mean Corpuscular Volume 90.3 fl (78.0-98.0); Mean Platelet Volume 10.8 fL (7.4-10.4); RBC Distribution Width 13.2 % (11.5-14.5); Red Blood Cell (RBC) Count 4.22 mill/uL (4.20-5.40); White Blood Cell (WBC) Count 8.7 10x3/uL (4.8-10.8)
[2023-02-28 07:31] LABS: Albumin 3.8 g/dL (3.4-4.8)
[2023-02-28 07:32] LABS: Chloride 110 mmol/L (98-107); Sodium 138 mmol/L (136-145)
[2023-02-28 07:33] LABS: Globulin 2.3 g/dL (2.4-3.5); Glucose 113 mg/dL (83-110); Protein, Total 6.1 g/dL (5.8-8.1)
[2023-02-28 07:34] LABS: Anion Gap 13 mmol/L (10-20); Carbon Dioxide 18 mmol/L (23-31)
[2023-02-28 07:35] LABS: Bilirubin, Total 0.5 mg/dL (0.2-1.2)
[2023-02-28 07:36] LABS: Alkaline Phosphatase 50 U/L (40-110)
[2023-02-28 07:37] LABS: BUN (Urea Nitrogen) 38 mg/dL (9.8-20.1)
[2023-02-28 07:38] LABS: AST (SGOT) 30 U/L (5-34)
[2023-02-28 07:39] LABS: ALT (SGPT) 21 U/L (8-55)
[2023-02-28 07:48] LABS: Hematocrit 38.1 % (36.0-47.0); Hemoglobin 12.4 g/dL (12.0-16.0); Platelet Count 179 10x3/uL (130-400)
[2023-02-28 07:53] LABS: Calc. Creatinine Clearance 42 mL/min (70-130); Calcium 8.4 mg/dL (7.8-10.44); Estimated GFR 59
[2023-02-28] MEDS: Anastrozole 1 MG TAB PO SCH (08:44)
[2023-02-28] MEDS: Potassium Chloride 20 MEQ in Premix 1 BAG IVPB SCH ×2 (08:44→11:51)
[2023-02-28] MEDS: Atorvastatin Calcium 20 MG TAB PO SCH (08:45)
[2023-02-28] MEDS: DULoxetine 60 MG CAP PO SCH (08:45)
[2023-02-28] MEDS: Montelukast Sodium 10 mg Tablet PO SCH (08:45)
[2023-02-28] MEDS: busPIRone HCl 10 MG TAB PO SCH (08:45)
[2023-02-28] MEDS: Oxybutynin 5 MG TAB PO SCH (08:45)
[2023-02-28] MEDS: HYDROcodone/Acetaminophen 10/325 mg Tablet PO PRN ×2 (08:46→14:30)
[2023-02-28] MEDS ORDERED: Aspirin 81 mg Enteric Coated Tablet PO SCH (09:00)
[2023-02-28] MEDS ORDERED: Enoxaparin 40 MG (0.4 mL) SYRINGE SC SCH (09:00)
[2023-02-28] MEDS: cefTRIAXone\\ROCEPHIN 1 GM in Sodium Chloride 0.9% 100 ML IVPB SCH (15:39)
[2023-02-28] MEDS: Loperamide HCl 2 MG CAP PO PRN (15:41)
[2023-03-01] MEDS: busPIRone HCl 10 MG TAB PO SCH ×3 (00:37→21:01)
[2023-03-01] MEDS: traZODone HCl 50 MG TAB PO SCH ×2 (00:38→21:01)
[2023-03-01] MEDS: HYDROcodone/Acetaminophen 10/325 mg Tablet PO PRN ×4 (00:41→21:00)
[2023-03-01] MEDS: Loperamide HCl 2 MG CAP PO PRN (00:41)
[2023-03-01 06:34] LABS: #Monocytes 0.5 thou/uL (0.11-0.59); #Neutrophils 2.5 thou/uL (1.40-6.50); %Basophils 0.3 % (0.0-1.0); %Lymphocytes 18.7 % (21.0-51.0); %Monocytes 13.1 % (0.0-10.0); %Neutrophils 67.6 % (42.0-75.0); Hemoglobin 11.7 g/dL (12.0-16.0); Mean Corpuscular HGB CONC 32.5 g/dL (32.0-36.0); Mean Corpuscular Hemoglobin 29.5 pg (27.0-31.0); Mean Corpuscular Volume 90.7 fl (78.0-98.0); Mean Platelet Volume 10.5 fL (7.4-10.4); Platelet Count 136 10x3/uL (130-400); RBC Distribution Width 12.8 % (11.5-14.5); Red Blood Cell (RBC) Count 3.97 mill/uL (4.20-5.40); White Blood Cell (WBC) Count 3.8 10x3/uL (4.8-10.8)
[2023-03-01 06:48] LABS: Anion Gap 10 mmol/L (10-20); BUN (Urea Nitrogen) 20 mg/dL (9.8-20.1); Calc. Creatinine Clearance 60 mL/min (70-130); Calcium 8.4 mg/dL (7.8-10.44); Carbon Dioxide 19 mmol/L (23-31); Chloride 108 mmol/L (98-107); Estimated GFR 88; Glucose 96 mg/dL (83-110); Potassium 3.3 mmol/L (3.5-5.1); Sodium 134 mmol/L (136-145)
[2023-03-01] MEDS ORDERED: Potassium Chloride 20 MEQ in Premix 1 BAG IVPB SCH (07:15)
[2023-03-01 07:54] LABS: Anion Gap 10 mmol/L (10-20); BUN (Urea Nitrogen) 19 mg/dL (9.8-20.1); Calc. Creatinine Clearance 59 mL/min (70-130); Calcium 8.5 mg/dL (7.8-10.44); Carbon Dioxide 19 mmol/L (23-31); Chloride 109 mmol/L (98-107); Estimated GFR 88; Glucose 90 mg/dL (83-110); Potassium 3.3 mmol/L (3.5-5.1); Sodium 135 mmol/L (136-145)
[2023-03-01] MEDS ORDERED: Phenazopyridine HCl 100 MG TAB PO PRN (07:57)
[2023-03-01] MEDS: Atorvastatin Calcium 20 MG TAB PO SCH (08:15)
[2023-03-01] MEDS: Anastrozole 1 MG TAB PO SCH (08:15)
[2023-03-01] MEDS: Montelukast Sodium 10 mg Tablet PO SCH (08:15)
[2023-03-01] MEDS: Oxybutynin 5 MG TAB PO SCH (08:16)
[2023-03-01] MEDS: DULoxetine 60 MG CAP PO SCH (08:16)
[2023-03-01] MEDS: Ondansetron PF 4 MG/2 ML Vial IVP PRN ×2 (09:25→15:11)
[2023-03-01] MEDS ORDERED: Lactated Ringer's 500 ML IV SCH (10:45)
[2023-03-01] MEDS: Potassium Chloride 20 MEQ in Premix 1 BAG IVPB SCH (14:44)
[2023-03-01] MEDS: cefTRIAXone\\ROCEPHIN 1 GM in Sodium Chloride 0.9% 100 ML IVPB SCH (15:48)
[2023-03-01] MEDS: Lisinopril 10 MG TAB PO SCH (21:00)
[2023-03-02 08:30] LABS: Anion Gap 12 mmol/L (10-20); BUN (Urea Nitrogen) 14 mg/dL (9.8-20.1); Calc. Creatinine Clearance 59 mL/min (70-130); Calcium 8.8 mg/dL (7.8-10.44); Carbon Dioxide 23 mmol/L (23-31); Chloride 108 mmol/L (98-107); Estimated GFR 86; Glucose 82 mg/dL (83-110); Potassium 3.9 mmol/L (3.5-5.1); Sodium 139 mmol/L (136-145)
[2023-03-02] MEDS: Atorvastatin Calcium 20 MG TAB PO SCH (08:48)
[2023-03-02] MEDS: DULoxetine 60 MG CAP PO SCH (08:48)
[2023-03-02] MEDS: Anastrozole 1 MG TAB PO SCH (08:48)
[2023-03-02] MEDS: Oxybutynin 5 MG TAB PO SCH (08:48)
[2023-03-02] MEDS: busPIRone HCl 10 MG TAB PO SCH ×2 (08:49→20:56)
[2023-03-02] MEDS: Montelukast Sodium 10 mg Tablet PO SCH (08:49)
[2023-03-02] MEDS: Loperamide HCl 2 MG CAP PO PRN ×4 (08:57→20:56)
[2023-03-02] MEDS ORDERED: Ciprofloxacin 500 MG TAB PO SCH (10:15)
[2023-03-02] MEDS: Sodium Chloride 0.9% 1,000 ML IV SCH ×2 (10:16→23:28)
[2023-03-02] MEDS: HYDROcodone/Acetaminophen 10/325 mg Tablet PO PRN ×3 (10:24→21:55)
[2023-03-02] MEDS: hydrALAZINE 10 MG TAB PO PRN (13:06)
[2023-03-02] MEDS: Potassium Chloride 20 MEQ in Premix 1 BAG IVPB SCH (14:00)
[2023-03-02] MEDS: Lisinopril 10 MG TAB PO SCH (20:56)
[2023-03-02] MEDS: Ciprofloxacin 500 MG TAB PO SCH (20:56)
[2023-03-02] MEDS: traZODone HCl 50 MG TAB PO SCH (20:58)
[2023-03-03 03:19] LABS: Campy jejuni + coli by PCR Negative (Negative); STEC Shiga Toxin 1+2 Negative (Negative); Salmonella spp. by PCR Negative (Negative); Shigella spp + EIEC by PCR Negative (Negative)
[2023-03-03] MEDS: Sodium Chloride 0.9% 1,000 ML IV SCH (05:48)
[2023-03-03] MEDS: Ciprofloxacin 500 MG TAB PO SCH ×2 (05:48→20:13)
[2023-03-03] MEDS: HYDROcodone/Acetaminophen 10/325 mg Tablet PO PRN ×2 (09:26→20:17)
[2023-03-03] MEDS: Anastrozole 1 MG TAB PO SCH (09:27)
[2023-03-03] MEDS: DULoxetine 60 MG CAP PO SCH (09:27)
[2023-03-03] MEDS: Atorvastatin Calcium 20 MG TAB PO SCH (09:27)
[2023-03-03] MEDS: Oxybutynin 5 MG TAB PO SCH (09:27)
[2023-03-03] MEDS: Montelukast Sodium 10 mg Tablet PO SCH (09:27)
[2023-03-03] MEDS: busPIRone HCl 10 MG TAB PO SCH ×2 (09:27→20:13)
[2023-03-03] MEDS: hydrALAZINE 10 MG TAB PO PRN (09:39)
[2023-03-03] MEDS ORDERED: Amlodipine 5 MG TAB PO SCH ×2 (09:45→18:15)
[2023-03-03 10:33] LABS: Anion Gap 12 mmol/L (10-20); BUN (Urea Nitrogen) 8 mg/dL (9.8-20.1); Calc. Creatinine Clearance 63 mL/min (70-130); Calcium 8.5 mg/dL (7.8-10.44); Carbon Dioxide 24 mmol/L (23-31); Chloride 108 mmol/L (98-107); Estimated GFR 89; Glucose 89 mg/dL (83-110); Potassium 3.7 mmol/L (3.5-5.1); Sodium 140 mmol/L (136-145)
[2023-03-03] MEDS: Lisinopril 10 MG TAB PO SCH (20:13)
[2023-03-03 21:38] VITALS: BP 175/65; TEMP 99.2
[2023-03-04] MEDS ORDERED: Amlodipine 5 MG TAB PO SCH (09:00)
== END 2023-03-03 20:22 | disposition home or self-care (01) | DRG 391 ==
LOC: SUATTDRO 10:31 → ERS 10:31 → ERHOLD 15:42 → 2NO 22:19 → MSONC 03-01 04:50
PROVIDERS: ADMIT Internal Medicine; ATTEND Internal Medicine
PROC: 4A043R1 Measurement of Venous Saturation, Peripheral, Percutaneous Approach (ICD-10-PCS; principal; 2023-02-27)
DX: K52.9 Noninfective gastroenteritis and colitis, unspecified (principal); I21.A1 Myocardial infarction type 2; E87.1 Hypo-osmolality and hyponatremia; N17.9 Acute kidney failure, unspecified; N20.1 Calculus of ureter; I10 Essential (primary) hypertension; C67.9 Malignant neoplasm of bladder, unspecified; K82.8 Other specified diseases of gallbladder; E78.00 Pure hypercholesterolemia, unspecified; F41.9 Anxiety disorder, unspecified; F32.A Depression, unspecified; N76.1 Subacute and chronic vaginitis; Z88.0 Allergy status to penicillin; Z88.1 Allergy status to other antibiotic agents; E87.6 Hypokalemia; Z79.82 Long term (current) use of aspirin; Z79.899 Other long term (current) drug therapy; Z92.21 Personal history of antineoplastic chemotherapy; Z11.52 Encounter for screening for COVID-19; E86.0 Dehydration
CPT/HCPCS: 36415; 71045; 74176; 80048; 80053; 81001; 82805; 83605; 83690; 83735; 84484; 85025; 87040; 87086; 87324; 87449; 87505; 88121; 93005; 94760; 96361; 96365; 96375; J0696; J1956; J2272; J2405; J3480; J3490; J7050; J7120; Q0162

== ENCOUNTER 2023-03-12 13:13 | Outpatient (CLI) | payer OTHER | END 2023-03-12 13:14 | disposition home or self-care (01) | LOC: BICMAMMO 13:13 | PROVIDERS: ATTEND Registered Nurse Hospice | DX: Z08 Encounter for follow-up examination after completed treatment for malignant neoplasm (principal); Z85.3 Personal history of malignant neoplasm of breast | CPT/HCPCS: 77066; G0279 ==

== ENCOUNTER 2023-03-27 07:29 | Outpatient (CLI) | payer OTHER ==
[2023-03-27 08:37] LABS: Bilirubin Neg (Negative); Blood, Urine 150 (Negative); Clarity Slightly Cloudy (Clear); Glucose, Urine (Dipstick) Normal (Negative); Ketone, Urine Negative (Negative); Leukocyte 25 (Negative); Nitrite Negative (Negative); Protein, Urine (Dipstick) 100 mg/dl (Neg-Trace); Specific Gravity, Urine 1.025 (1.005-1.030); Urobilinogen Normal mg/dL (Less than 2)
[2023-03-27 08:41] LABS: Hematocrit 39.7 % (34.9-44.5); Hemoglobin 12.9 g/dL (12.0-15.5); Mean Corpuscular HGB CONC 32.5 g/dL (32.0-36.0); Mean Corpuscular Hemoglobin 29.2 pg (27.0-33.0); Mean Corpuscular Volume 89.8 fl (81.6-98.3); Mean Platelet Volume 10.6 fl (7.4-10.4); Platelet Count 187 10x3/uL (150-450); RBC Distribution Width 13.4 % (11.5-14.5); Red Blood Cell (RBC) Count 4.42 10x6/uL (3.90-5.03); White Blood Cell (WBC) Count 3.5 10x3/uL (3.5-10.5)
[2023-03-27 09:01] LABS: Anion Gap 11 mmol/L (10-20); BUN (Urea Nitrogen) 23 mg/dL (9.8-20.1); Calc. Creatinine Clearance 0 mL/min (70-130); Carbon Dioxide 28 mmol/L (23-31); Chloride 104 mmol/L (98-107); Estimated GFR 86; Glucose 109 mg/dL (83-110); Potassium 3.8 mmol/L (3.5-5.1); Sodium 139 mmol/L (136-145)
[2023-03-27 09:13] LABS: PTT 26.8 sec (22.0-33.0); Prothrombin Time 10.5 sec (9.5-12.1)
[2023-03-27 09:55] LABS: Bacteria/HPF Rare-Few HPF (None Seen); Squamous Epithelial 0-3 HPF (0-3)
== END 2023-03-27 07:30 | disposition home or self-care (01) ==
LOC: LABBT 07:29
PROVIDERS: ATTEND Urology
DX: Z01.818 Encounter for other preprocedural examination (principal); C67.8 Malignant neoplasm of overlapping sites of bladder; N20.2 Calculus of kidney with calculus of ureter; K59.01 Slow transit constipation; R68.2 Dry mouth, unspecified; R33.8 Other retention of urine; Z98.890 Other specified postprocedural states
CPT/HCPCS: 80048; 81001; 85027; 85610; 85730; 87086; 93005; 93010

== ENCOUNTER 2023-04-01 13:12 | Outpatient (CLI) | payer OTHER ==
[2023-04-01] MEDS ORDERED: Iopamidol 370 76% 100 ML VIAL ONE (13:56)
== END 2023-04-01 13:13 | disposition home or self-care (01) ==
LOC: BICCT 13:12
PROVIDERS: ATTEND Urology
DX: N20.1 Calculus of ureter (principal); C67.9 Malignant neoplasm of bladder, unspecified; N32.89 Other specified disorders of bladder; I70.0 Atherosclerosis of aorta; E27.8 Other specified disorders of adrenal gland; K59.00 Constipation, unspecified; K57.30 Diverticulosis of large intestine without perforation or abscess without bleeding; I70.8 Atherosclerosis of other arteries; R60.9 Edema, unspecified; M47.9 Spondylosis, unspecified
CPT/HCPCS: 74178; Q9967

== ENCOUNTER 2023-04-03 06:55 | Day surgery (SDC) | payer OTHER ==
[2023-03-27 08:15] VITALS: BMI 23.2
[~2023-04-03 06:55] MED LIST changes: -Iopamidol-370 76% 500 ML MDV (1 ML CHARGE) ONE; +mitoMYcin 40 MG in Sodium Chloride 0.9% 40 ML I-VESIC SCH
[2023-04-03] MEDS ORDERED: LevoFLOXacin D5W 500 mg (100 mL) BAG ONE (07:47)
[2023-04-03] MEDS ORDERED: Lidocaine 1% MPF 2 ML VIAL ONE (07:47)
[2023-04-03] MEDS ORDERED: PROPOFOL 20 ML ONE (09:04)
[2023-04-03] MEDS ORDERED: Lidocaine 2% PF 5 ML VIAL ONE (09:05)
[2023-04-03] MEDS ORDERED: Rocuronium Bromide 10 MG/ML (10ML VIAL) ONE (09:05)
[2023-04-03] MEDS ORDERED: fentaNYL PF 100 MCG/2 ML SYRINGE ONE (09:05)
[2023-04-03] MEDS ORDERED: Glycopyrrolate 0.2 MG/ML 5 ML SYRINGE ONE (09:44)
[2023-04-03] MEDS ORDERED: Dexamethasone 20 MG/5 ML VIAL ONE (09:44)
[2023-04-03] MEDS ORDERED: cefTRIAXone (ROCEPHIN) 1 GM VIAL ONE (09:48)
[2023-04-03] MEDS ORDERED: Sodium Chloride 0.9% 100 ML ONE (09:48)
[2023-04-03] MEDS ORDERED: Furosemide 20 MG (2 mL) VIAL ONE ×2 (10:21→10:24)
[2023-04-03] MEDS ORDERED: SUGAMMADEX SODIUM 200 MG/2 ML VIAL ONE (10:44)
[2023-04-03] MEDS ORDERED: Iopamidol 30 ML ONE (11:29)
[2023-04-03] MEDS ORDERED: Promethazine HCl 25 MG/ML VIAL IM PRN (11:34)
[2023-04-03] MEDS ORDERED: Ondansetron HCl/PF 4 MG/2 ML Vial IVP PRN (11:34)
[2023-04-03] MEDS ORDERED: fentaNYL 50 mcg/mL 1 mL Vial ONE ×3 (11:40→13:11)
[2023-04-03] MEDS ORDERED: Oxybutynin 5 MG TAB ONE (11:51)
[2023-04-03] MEDS ORDERED: Phenazopyridine HCl 100 MG TAB ONE (11:52)
== END 2023-04-03 15:02 | disposition home or self-care (01) ==
LOC: SDC 06:55
PROVIDERS: ATTEND Urology
PROC: 0TBB8ZZ Excision of Bladder, Via Natural or Artificial Opening Endoscopic (ICD-10-PCS; principal; 2023-04-03)
PROC: 3E0P3GC Introduction of Other Therapeutic Substance into Female Reproductive, Percutaneous Approach (ICD-10-PCS; 2023-04-03)
PROC: 0TH98YZ Insertion of Other Device into Ureter, Via Natural or Artificial Opening Endoscopic (ICD-10-PCS; 2023-04-03)
DX: C67.9 Malignant neoplasm of bladder, unspecified (principal); D41.4 Neoplasm of uncertain behavior of bladder; N32.89 Other specified disorders of bladder; K59.01 Slow transit constipation; R68.2 Dry mouth, unspecified; N20.2 Calculus of kidney with calculus of ureter; E78.00 Pure hypercholesterolemia, unspecified; I10 Essential (primary) hypertension; G40.909 Epilepsy, unspecified, not intractable, without status epilepticus; F41.9 Anxiety disorder, unspecified; R33.8 Other retention of urine; Z88.0 Allergy status to penicillin; Z88.1 Allergy status to other antibiotic agents; Z79.899 Other long term (current) drug therapy; Z90.710 Acquired absence of both cervix and uterus
CPT/HCPCS: 51720; 52235; 52332; 74420; 86850; 86900; 86901; C1747; C1769; C2617; J3010; J9280; 88305; 88307; J0696; J1100; J1940; J1956; J2001; J2704; J3490; Q9967

== ENCOUNTER 2023-06-20 11:59 | Outpatient (CLI) | payer OTHER | END 2023-06-20 12:00 | disposition home or self-care (01) | LOC: BICCT 11:59 | PROVIDERS: ATTEND Urology | DX: C67.8 Malignant neoplasm of overlapping sites of bladder (principal); N20.0 Calculus of kidney; N32.9 Bladder disorder, unspecified; K59.00 Constipation, unspecified; Z98.890 Other specified postprocedural states | CPT/HCPCS: 36415; 74178; 80048; 81001; 82565; 87086; 88121 ==

== ENCOUNTER 2023-07-12 11:07 | Outpatient (CLI) | payer OTHER ==
[2023-07-12 12:21] LABS: Hematocrit 39.2 % (34.9-44.5); Mean Corpuscular HGB CONC 33.2 g/dL (32.0-36.0); Mean Corpuscular Hemoglobin 30.6 pg (27.0-33.0); Mean Corpuscular Volume 92.2 fL (81.6-98.3); Mean Platelet Volume 10.6 fL (7.4-10.4); Platelet Count 178 10x3/uL (150-450); RBC Distribution Width 13.3 % (11.5-14.5); Red Blood Cell (RBC) Count 4.25 10x6/uL (3.90-5.03)
[2023-07-12 12:26] LABS: Bilirubin Neg (Negative); Blood, Urine 50 (Negative); Clarity Clear (Clear); Glucose, Urine (Dipstick) Normal (Negative); Ketone, Urine Negative (Negative); Leukocyte 25 (Negative); Nitrite Negative (Negative); Protein, Urine (Dipstick) Negative (Neg-Trace); Specific Gravity, Urine 1.015 (1.005-1.030); Urobilinogen Normal mg/dL (Less than 2)
[2023-07-12 12:34] LABS: Anion Gap 13 mmol/L (10-20); BUN (Urea Nitrogen) 18 mg/dL (9.8-20.1); Calc. Creatinine Clearance 0 mL/min (70-130); Calcium 9.4 mg/dL (7.8-10.44); Carbon Dioxide 29 mmol/L (23-31); Chloride 103 mmol/L (98-107); Estimated GFR 81; Glucose 109 mg/dL (83-110); Potassium 4.1 mmol/L (3.5-5.1); Sodium 141 mmol/L (136-145)
[2023-07-12 12:41] LABS: PTT 25.8 sec (22.0-33.0); Prothrombin Time 10.4 sec (9.5-12.1)
[2023-07-12 13:03] LABS: Squamous Epithelial 0-3 HPF (0-3)
[2023-07-12 13:04] LABS: Bacteria/HPF 2+ HPF (None Seen); Mucous/LPF 1+ LPF (<2+)
== END 2023-07-12 11:08 | disposition home or self-care (01) ==
LOC: LABBT 11:07
PROVIDERS: ATTEND Urology
DX: Z01.818 Encounter for other preprocedural examination (principal); C67.8 Malignant neoplasm of overlapping sites of bladder; N20.2 Calculus of kidney with calculus of ureter; K59.01 Slow transit constipation; R33.8 Other retention of urine; R68.2 Dry mouth, unspecified; Z98.890 Other specified postprocedural states
CPT/HCPCS: 80048; 81001; 85027; 85610; 85730; 87086; 93005; 93010

== ENCOUNTER 2023-07-24 08:15 | Day surgery (SDC) | payer OTHER ==
[2023-07-12 11:40] VITALS: BMI 23.2
[2023-07-24] MEDS ORDERED: mitoMYcin 40 MG in Sodium Chloride 0.9% 40 ML I-VESIC SCH (10:00)
[2023-07-24] MEDS ORDERED: LevoFLOXacin D5W 500 mg (100 mL) BAG ONE (10:44)
[2023-07-24] MEDS ORDERED: Rocuronium Bromide 10 MG/ML (10ML VIAL) ONE (12:04)
[2023-07-24] MEDS ORDERED: Ondansetron PF 4 MG/2 ML Vial ONE (12:04)
[2023-07-24] MEDS ORDERED: PROPOFOL 20 ML ONE (12:04)
[2023-07-24] MEDS ORDERED: Dexamethasone 4 mg/ml Vial ONE (12:04)
[2023-07-24] MEDS ORDERED: fentaNYL PF 100 MCG/2 ML SYRINGE ONE (12:04)
[2023-07-24] MEDS ORDERED: SUGAMMADEX SODIUM 200 MG/2 ML VIAL ONE (12:59)
[2023-07-24] MEDS ORDERED: Phenazopyridine HCl 100 MG TAB ONE (13:31)
[2023-07-24] MEDS ORDERED: Oxybutynin 5 MG TAB ONE (13:31)
[2023-07-24] MEDS ORDERED: Hyoscyamine SL 0.125 MG TAB ONE (13:31)
[2023-07-24] MEDS ORDERED: fentaNYL 50 mcg/mL 1 mL Vial ONE (14:00)
== END 2023-07-24 15:55 | disposition home or self-care (01) ==
LOC: SDC 08:15
PROVIDERS: ATTEND Urology
PROC: 0T5B8ZZ Destruction of Bladder, Via Natural or Artificial Opening Endoscopic (ICD-10-PCS; principal; 2023-07-24)
DX: C67.1 Malignant neoplasm of dome of bladder (principal); N30.91 Cystitis, unspecified with hematuria; R68.2 Dry mouth, unspecified; N20.0 Calculus of kidney; Z98.890 Other specified postprocedural states
CPT/HCPCS: 52204; 52235; 86850; 86900; 86901; A4333; J1100; J1956; J2405; J2704; J3010; J9280; 88305; 88341; 88342